=== PATIENT | male | born 1955 | race Two or more races ===

== ENCOUNTER 2017-01-29 05:59 | Emergency (ER) | payer OTHER ==
[~2017-01-29] VITALS: Ht 170.2 cm; Wt 81.4 kg
[~2017-01-29 05:59] MED LIST: ASPI-1159 PO
[2017-01-29 08:24] VITALS: BP 170/98
== END 2017-01-29 08:31 | disposition home or self-care (01) ==
LOC: ER 05:59
DX: R05 Cough (principal); I11.0 Hypertensive heart disease with heart failure; F10.10 Alcohol abuse, uncomplicated; Y90.9 Presence of alcohol in blood, level not specified; Z79.82 Long term (current) use of aspirin; Z87.891 Personal history of nicotine dependence
CPT/HCPCS: 71010; 99283; Z7610